=== PATIENT | male | born 1980 | race Caucasian/White ===

== ENCOUNTER 2022-03-30 07:06 | Emergency (ER) | payer OTHER, SELFPAY ==
[2022-03-30 07:23] VITALS: BP 139/98; PULSE 88; RESP 20; TEMP 36.6; O2SAT 97; BMI 32.9
--- NOTE | 2022-03-30 08:07 | CT_ITS ---
Final Report Patient: KATERINE ZAZUETA Facility:?[facility] Patient ID:?[id number] Site Patient ID:?[id number]. Site :?[id number] Study:?CT Abdomen/Pelvis -03/30/2022 8:46:46 AM Ordering Physician:Tiburcio Nelson Final Report: INDICATION: History right flank pain. TECHNIQUE: Volumetric helical scanning of the abdomen and pelvis was performed without contrast material. Coronal and sagittal reconstructions were obtained. COMPARISON: None FINDINGS: Mild acute mid sigmoid diverticulitis is demonstrated. No abscess, free fluid or free air is apparent. The bowel is otherwise unremarkable. A normal appendix is noted. No urinary tract stone or obstruction is evident. The kidneys are unremarkable except for a 5 mm lesion along the lateral aspect of the mid to inferior right kidney, likely a cyst. The prostate is negative. The liver is normal in size, shape and attenuation. The bile ducts are within normal limits. The spleen, adrenal glands and pancreas are negative. No lymphadenopathy is evident. No free fluid is demonstrated. The lung bases are essentially clear, and heart size is normal. IMPRESSION: 1. Uncomplicated mild acute mid sigmoid diverticulitis. 2. 5 mm lesion along the lateral aspect of the mid to inferior right kidney, likely a cyst. Nonemergent ultrasound recommended for confirmation. Please note that all CT scans at this facility use dose modulation, iterative reconstruction, and/or weight-based dosing when appropriate to reduce radiation dose to as low as reasonably achievable. Dictated by Otoniel Soares MD @ 03/30/2022 9:40:19 AM (Electronic Signature)
--- NOTE | 2022-03-30 08:09 | ED_ITS ---
HPI - General Adult General Time Seen by Provider: 08:08 Date Seen: 03/30/22 Chief complaint: Flank Pain Stated complaint: Kidney Stone Time Seen by Provider: 03/30/22 07:59 History of Present Illness HPI narrative: This 41-year-old male comes in reporting right flank pain radiating into his right abdomen and groin. This pain began yesterday and at times is been very intense with nausea. He had similar symptoms about 8 years ago and suspected a kidney stone but never has had a workup to establish that diagnosis. He does not know of any family history of kidney stone. Related Data Home Medications Medication Instructions Recorded Confirmed No Known Home Medications 03/30/22 03/30/22 Previous Rx's Medication Instructions Recorded amoxicillin 875 mg-potassium 1 tab PO BID #20 tab 03/30/22 clavulanate 125 mg tablet ketorolac 10 mg tablet 10 mg PO TID #15 tab 03/30/22 Allergies Allergy/AdvReac Type Severity Reaction Status Date / Time No Known Drug Allergies Allergy Verified 03/30/22 07:23 Review of Systems Status of ROS: Reports: 10 or more systems reviewed and unremarkable except as noted in History and below Narrative: Constitutional: No fevers, no weight gain or loss. Eyes: No discharge. No vision changes. HENT: No congestion, no sore throat, no ear pain. Cardiovascular: No chest pain, no palpitations. Respiratory: No shortness of breath, no wheezes, no cough. Gastrointestinal: No vomiting, no diarrhea. Right flank and abdominal pain with nausea. Genitourinary: No dysuria, no hematuria. Musculoskeletal: Normal range of motion. Skin: No rashes, no pruritis. Neurological: No dizziness, weakness, sensory change, speech change. Endo/Heme/Allergies: No bruising or bleeding. No polydipsia. Pysch: no suicidality, no anxiety, no insomnia. All other systems reviewed and are negative. [facility] Medical History No significant past medical history Surgical History (Updated 03/30/22 @ 07:32 by Marisela Renteria RN) No significant past surgical history Social History Do you use any of these nicotine containing products: Smokeless Tobacco Second hand tobacco smoke exposure: No How often do you have a drink containing alcohol: 2-3 times a week How many standard drinks containing alcohol do you have on a typical day: 1 or 2 How often do you have six or more drinks on one occasion: Weekly AUDIT-C Alcohol total score: 6 Non-prescribed substance use details: gummies thc service: No Exam Narrative: Exam Narrative: Constitutional: Well-developed, well-nourished, no acute distress. HEENT: Normocephalic, atraumatic. Neck: Normal range of motion. Nontender. Supple. Heart: Regular. No murmurs. Normal rate. Intact distal pulses. Lungs: Clear to auscultation. No chest discomfort. No wheezes, rhonchi, or rales. Abdomen: Normal bowel sounds. Nontender. No rebound tenderness. Genitalia: Deferred. Back: No midline tenderness. Normal range of motion. Extremities: Normal range of motion. No injury. Skin: Intact. No rash. Warm. No erythema or pallor. Neurologic: No altered sensation. No weakness. Alert and oriented. Psychiatric: No suicidality. No anxiety or depression. No insomnia. Nursing notes and vitals signs are reviewed. Const: Vital Signs, click to edit/add: Vital Signs - 24 hr 03/30/22 07:23 Temperature 98 F Pulse Rate [Pulse Oximeter] 88 Respiratory Rate 20 Blood Pressure [Le ft Forearm] 139/98 H Pulse Oximetry 97 Course Vital Signs Vital signs: Initial Vital Signs Temperature 98 F 03/30/22 07:23 Temperature Source Temporal Artery Scan 03/30/22 07:23 Pulse Rate 88 03/30/22 07:23 Pulse Rhythm 03/30/22 07:23 Respiratory Rate 20 03/30/22 07:23 Blood Pressure 139/98 H 03/30/22 07:23 Blood Pressure Mean 111 03/30/22 07:23 Blood Pressure Position Supine 03/30/22 07:23 Pulse Oximetry 97 03/30/22 07:23 Oxygen Delivery Method 03/30/22 07:23 Vital Signs Temperature 98 F 03/30/22 07:23 Pulse Rate 88 03/30/22 07:23 Respiratory Rate 20 03/30/22 07:23 Blood Pressure 139/98 H 03/30/22 07:23 Pulse Oximetry 97 03/30/22 07:23 Temperature 98 F 03/30/22 07:23 Pulse Rate 88 03/30/22 07:23 Respiratory Rate 20 03/30/22 07:23 Blood Pressure 139/98 H 03/30/22 07:23 Pulse Oximetry 97 03/30/22 07:23 Medical Decision Making MDM Narrative Medical decision making narrative: This patient comes in with abdominal pain as described above. There was some suspicion of kidney stone given his description of symptoms. Urinalysis does not show any microscopic hematuria and CT imaging of the abdomen and pelvis does not identify any evidence of kidney stone. There is evidence of diverticulitis. The patient did receive an oral dose of [place] 2 tablets which brought sufficient relief to his symptoms. He is prescribed Toradol and Augmentin. I advised him regarding matters pertaining to diverticulitis. He is okay to be discharged home. Lab Data Labs: Lab Results 03/30/22 Range/Units 08:25 Urine Color Yellow (Yellow) Urine Appearance Clear (Clear) Urine pH 5.5 (5.0-8.5) Ur Specific Boomer 1.020 (1.000-1.030) Urine Protein Negative (Negative) Urine Glucose (UA) Negative (Negative) Urine Ketones Negative (Negative) Urine Blood Trace-intact A (Negative) Urine Nitrite Negative (Negative) Urine Bilirubin Negative (Negative) Urine Urobilinogen 0.2 (0.2-1.0) Ur Leukocyte Esterase Negative (Negative) Urine RBC 0-2 (0-2) Urine WBC 0-2 (0-5) Ur Squamous Epith Cells None (None-Few) Urine Bacteria None (None) Urine Mucus Few A (None) Imaging Data CT scan - abdomen: Attestation: I have reviewed the pertinent imaging results. Radiologist's impression: 1. Uncomplicated mild acute mid sigmoid diverticulitis. 2. 5 mm lesion along the lateral aspect of the mid to inferior right kidney, likely a cyst. Nonemergent ultrasound recommended for confirmation. Discharge Plan Discharge Clinical Impression: Diverticulitis Patient Disposition: Home, Self-Care Condition: Stable Instructions: Diverticulitis (ED) Additional Instructions: Diverticulitis. Take medication as prescribed. Follow up with MD or return if worsening or recurrent symptoms happen. Prescriptions: New ketorolac 10 mg tablet 10 mg PO TID Qty: 15 0RF amoxicillin-pot clavulanate 875-125 mg tablet 1 tab PO BID Qty: 20 0RF No Action No Known Home Medications 0RF Follow Up/Referrals: Provider,Not a Local [Primary Care Provider] - Stand Alone Forms: [employer] Info Instructions
[2022-03-30] MEDS: HYDROCODONE-ACETAMIN 5-325 MG 1 TAB 2 TAB PO (08:22)
[2022-03-30] MEDS: ONDANSETRON ODT 4 MG TAB PO (08:23)
[2022-03-30 08:40] LABS: Appearance Urine Clear (Clear); Bilirubin Urine Negative (Negative); Blood Urine Trace-intact (Negative); Color Urine Yellow (Yellow); Glucose Urine Negative (Negative); Ketones Urine Negative (Negative); Leukocyte Esterase Urine Negative (Negative); Nitrite Urine Negative (Negative); Protein Urine Negative (Negative); Urobilinogen Urine 0.2 (0.2-1.0); pH Urine 5.5 (5.0-8.5)
[2022-03-30 08:46] LABS: RBC Urine 0-2 (0-2); WBC Urine 0-2 (0-5)
[2022-03-30 08:47] LABS: Mucus Urine Few
[2022-03-30 10:45] VITALS: BP 136/88; PULSE 78; RESP 18; TEMP 36.7; O2SAT 97
== END 2022-03-30 10:45 | disposition home or self-care (01) ==
PROVIDERS: Emergency Provider Emergency Medicine Emergency Medical Services
DX: K57.20 Diverticulitis of large intestine with perforation and abscess without bleeding (principal)
CPT/HCPCS: 74176; 81001; 99284; 99285; A9270